=== PATIENT | male | born 1975 | race Caucasian/White ===

== ENCOUNTER 2017-02-26 11:58 | Emergency (ER) | payer MEDICAID ==
[~2017-02-26] VITALS: Ht 170.2 cm; Wt 75.0 kg
[2017-02-26 14:14] VITALS: BP 151/101
== END 2017-02-26 14:16 | disposition home or self-care (01) ==
LOC: ER 11:59
DX: S63.592A Other specified sprain of left wrist, initial encounter (principal); S60.212A Contusion of left wrist, initial encounter; S50.12XA Contusion of left forearm, initial encounter; F12.10 Cannabis abuse, uncomplicated; F17.200 Nicotine dependence, unspecified, uncomplicated; Z98.890 Other specified postprocedural states; X58.XXXA Exposure to other specified factors, initial encounter; Y93.89 Activity, other specified; Y92.098 Other place in other non-institutional residence as the place of occurrence of the external cause; Y99.9 Unspecified external cause status
CPT/HCPCS: 29125; 73080; 73110; 99284; A6449

== ENCOUNTER 2021-06-24 03:01 | Emergency (ER) | payer MEDICAID ==
[~2021-06-24] VITALS: Ht 172.7 cm; Wt 175.0 kg
[2021-06-24 03:13] VITALS: BP 135/93
--- NOTE | 2021-06-24 04:00 | NUR ---
ERP at bedside to eval pt. Pt pink, alert, no acute/resp distress. Bed in lowest position, wheels locked, rail 2/2 up, call thrasher in reach. Will continue to monitor for acute changes and needs. Will continue to monitor for acute changes and needs.
[2021-06-24] MEDS ORDERED: HYDROcodone/acetaminophen 10/325mg tab PO ONE (04:05)
[2021-06-24] MEDS ORDERED: HYDR-3965 PO (04:17)
--- NOTE | 2021-06-24 04:31 | NUR ---
Pt pink, alert, no acute/resp distress. Bed in lowest position, wheels locked, rail 2/2 up, call thrasher in reach. Will continue to monitor for acute changes and needs. Will continue to monitor for acute changes and needs.
== END 2021-06-24 04:35 ==
LOC: ER 03:01
DX: T14.90XA Injury, unspecified, initial encounter (principal); R07.81 Pleurodynia; F12.90 Cannabis use, unspecified, uncomplicated; Z98.890 Other specified postprocedural states; Z79.899 Other long term (current) drug therapy; V99.XXXA Unspecified transport accident, initial encounter; Y93.89 Activity, other specified; Y92.89 Other specified places as the place of occurrence of the external cause; Y99.8 Other external cause status
CPT/HCPCS: 71046; 99284

== ENCOUNTER 2022-01-28 02:40 | Emergency (ER) | payer MEDICAID ==
[~2022-01-28] VITALS: Ht 172.7 cm; Wt 79.5 kg
[2022-01-28] MEDS ORDERED: ibuprofen tablet 400 MG TABLET PO ONE (04:10)
[2022-01-28 05:56] VITALS: BP 132/78
== END 2022-01-28 06:00 | disposition home or self-care (01) ==
LOC: ER 02:40
DX: M25.512 Pain in left shoulder (principal); F17.200 Nicotine dependence, unspecified, uncomplicated; F12.90 Cannabis use, unspecified, uncomplicated; V29.888A Rider (driver) (passenger) of other motorcycle injured in other specified transport accidents, initial encounter; Y93.89 Activity, other specified; Y92.89 Other specified places as the place of occurrence of the external cause; Y99.8 Other external cause status
CPT/HCPCS: 73030; 73090; 99284

== ENCOUNTER 2022-01-28 18:06 | Emergency (ER) | payer MEDICAID ==
[~2022-01-28] VITALS: Ht 172.7 cm; Wt 79.0 kg
[2022-01-29] MEDS ORDERED: acetaminophen 325mg tablet PO ONE (01:25)
[2022-01-29] MEDS ORDERED: ibuprofen tablet 400 MG TABLET PO ONE (02:00)
[2022-01-29] MEDS ORDERED: HYDROcodone/acetaminophen 10/325mg tab PO ONE (02:55)
[2022-01-29 03:26] VITALS: BP 155/87
== END 2022-01-29 03:27 | disposition home or self-care (01) ==
LOC: ER 18:07
DX: S62.165A Nondisplaced fracture of pisiform, left wrist, initial encounter for closed fracture (principal); M25.532 Pain in left wrist; M25.551 Pain in right hip; F12.90 Cannabis use, unspecified, uncomplicated; Z72.89 Other problems related to lifestyle; Z98.890 Other specified postprocedural states; V89.2XXA Person injured in unspecified motor-vehicle accident, traffic, initial encounter; Y93.89 Activity, other specified; Y92.89 Other specified places as the place of occurrence of the external cause; Y99.8 Other external cause status
CPT/HCPCS: 29125; 70450; 72125; 73110; 73552; 99284; A6449

== ENCOUNTER 2022-02-02 08:56 | Emergency (ER) | payer MEDICAID ==
[~2022-02-02] VITALS: Ht 172.7 cm; Wt 79.5 kg
[2022-02-02 09:26] VITALS: BP 188/121
--- NOTE | 2022-02-02 12:09 | NUR ---
[employer].
--- NOTE | 2022-02-02 13:39 | NUR ---
JAVA PROGRAMMER ANALYST AT BEDSIDE.
== END 2022-02-02 13:59 | disposition home or self-care (01) ==
LOC: ER 08:56
DX: S60.212A Contusion of left wrist, initial encounter (principal); F12.10 Cannabis abuse, uncomplicated; Z79.899 Other long term (current) drug therapy; X58.XXXA Exposure to other specified factors, initial encounter; Y93.89 Activity, other specified; Y92.89 Other specified places as the place of occurrence of the external cause; Y99.8 Other external cause status
CPT/HCPCS: 73100; 99283; A6449

== ENCOUNTER 2022-07-03 21:08 | Emergency (ER) | payer MEDICAID, OTHER ==
[~2022-07-03] VITALS: Ht 172.7 cm; Wt 81.8 kg
[2022-07-03 22:12] LABS: MEAN CORPUSCULAR HEMOGLOBIN 31.6 PG (27.0-31.0)
[2022-07-03 22:13] LABS: BASOPHILS # (AUTO) 0.1 X10'3 (0-0.2); BASOPHILS % (AUTO) 0.7 % (0-1); EOSINOPHILS # (AUTO) 0.4 X10'3 (0-0.9); EOSINOPHILS % (AUTO) 5.3 % (0-6); HEMATOCRIT 44.2 % (42.0-52.0); HEMOGLOBIN 15.4 g/dl (14.0-17.9); LYMPHOCYTES # (AUTO) 2.3 X10'3 (1.1-4.8); LYMPHOCYTES % (AUTO) 29.1 % (21-51); MEAN CORPUSCULAR HGB CONC 34.9 g/dL (33.0-36.5); MEAN CORPUSCULAR VOLUME 90.6 FL (78-98); MEAN PLATELET VOLUME 10.3 FL (7.4-10.4); MONOCYTES # (AUTO) 0.7 X10'3 (0-0.9); MONOCYTES % (AUTO) 8.6 % (2-12); NEUTROPHILS # (AUTO) 4.5 X10'3 (1.8-7.7); NEUTROPHILS % (AUTO) 56.3 % (42-75); PLATELET COUNT 203 X10'3 (140-440); RED BLOOD COUNT 4.88 X10'6 (4.70-6.10)
[2022-07-03 22:20] LABS: ALANINE AMINOTRANSFERASE 31 U/L (12-78); ALBUMIN 4.4 G/DL (3.4-5.0); ALBUMIN/GLOBULIN RATIO 1.6 (1.1-1.5); ALKALINE PHOSPHATASE 86 IU/L (46-116); ANION GAP 5 (8-16); ASPARTATE AMINO TRANSFERASE 20 U/L (10-37); BILIRUBIN,TOTAL 0.8 MG/DL (0.1-1.0); BLOOD UREA NITROGEN 18 MG/DL (7-18); BUN/CREATININE RATIO 17.3 (10.0-20.0); CHLORIDE 102 MMOL/L (99-107); CREATININE 1.04 MG/DL (0.60-1.10); GLUCOSE 107 MG/DL (70-104); POTASSIUM 4.7 MMOL/L (3.5-5.1); SODIUM 140 MMOL/L (135-145); TOTAL CARBON DIOXIDE 33.5 MMOL/L (24-32); TOTAL PROTEIN 7.2 G/DL (6.4-8.2); eGFR 78 ML/MIN
--- NOTE | 2022-07-03 22:46 | NUR ---
pt placed in room ed12
[2022-07-03 23:45] VITALS: BP 165/96
== END 2022-07-04 00:22 ==
LOC: EEVIPCON 21:09 → ER 21:09
DX: R07.9 Chest pain, unspecified (principal); F12.10 Cannabis abuse, uncomplicated
CPT/HCPCS: 36415; 71045; 80053; 83880; 84484; 85025; 93005; 99285

== ENCOUNTER 2023-06-11 22:02 | Emergency (ER) | payer MEDICAID, OTHER ==
[~2023-06-11] VITALS: Ht 175.3 cm; Wt 67.5 kg
[2023-06-11 22:58] LABS: BASOPHILS # (AUTO) 0.1 X10'3 (0-0.2); BASOPHILS % (AUTO) 1.2 % (0-1); EOSINOPHILS # (AUTO) 0.9 X10'3 (0-0.9); EOSINOPHILS % (AUTO) 9.8 % (0-6); HEMATOCRIT 41.8 % (42.0-52.0); HEMOGLOBIN 14.5 g/dl (14.0-17.9); LYMPHOCYTES # (AUTO) 1.3 X10'3 (1.1-4.8); LYMPHOCYTES % (AUTO) 14.7 % (21-51); MEAN CORPUSCULAR HEMOGLOBIN 31.7 PG (27.0-31.0); MEAN CORPUSCULAR HGB CONC 34.6 g/dL (33.0-36.5); MEAN CORPUSCULAR VOLUME 91.4 FL (78-98); MONOCYTES # (AUTO) 0.9 X10'3 (0-0.9); MONOCYTES % (AUTO) 9.5 % (2-12); NEUTROPHILS # (AUTO) 5.8 X10'3 (1.8-7.7); NEUTROPHILS % (AUTO) 64.8 % (42-75); PLATELET COUNT 216 X10'3 (140-440); RED BLOOD COUNT 4.57 X10'6 (4.70-6.10); RED CELL DISTRIBUTION WIDTH 12.8 % (11.5-14.5)
[2023-06-11 23:10] LABS: ALBUMIN 3.5 G/DL (3.4-5.0); ANION GAP 4 (8-16); BLOOD UREA NITROGEN 22 MG/DL (7-18); BUN/CREATININE RATIO 22.4 (10.0-20.0); CALCIUM 9.2 MG/DL (8.5-10.1); CHLORIDE 106 MMOL/L (99-107); CREATININE 0.98 MG/DL (0.60-1.10); GLUCOSE 111 MG/DL (70-104); POTASSIUM 3.9 MMOL/L (3.5-5.1); SODIUM 142 MMOL/L (135-145); eCRCL 91 ML/MIN; eGFR 83 ML/MIN
[2023-06-11 23:44] LABS: ETHANOL < 10 MG/DL (<10); THYROID STIMULATING HORMONE 1.26 ulU/ml (0.34-4.50)
[2023-06-12 00:05] VITALS: TEMP 98.6
[2023-06-12 02:05] VITALS: BP 158/9; PULSE 74; RESP 15; O2SAT 96
[2023-06-12 02:28] LABS: URINE AMPHETAMINE SCREEN POSITIVE (Neg); URINE BARBITUATE SCREEN NEGATIVE (Neg); URINE BENZODIAZEPINES SCREEN NEGATIVE (Neg); URINE CANNABINOID SCREEN NEGATIVE (Neg); URINE COCAINE SCREEN NEGATIVE (Neg); URINE METHADONE SCREEN NEGATIVE (Neg); URINE OPIATE SCREEN NEGATIVE (Neg); URINE PHENCYCLIDINE SCREEN NEGATIVE (Neg)
== END 2023-06-12 03:36 | disposition home or self-care (01) ==
LOC: ER 22:02
DX: F15.10 Other stimulant abuse, uncomplicated (principal); F12.90 Cannabis use, unspecified, uncomplicated
CPT/HCPCS: 36415; 70450; 71045; 80048; 80305; 80320; 84443; 84484; 85025; 93005; 99285

== ENCOUNTER 2023-06-21 11:48 | Outpatient (CLI) | payer MEDICAID | END 2023-06-21 23:59 | disposition home or self-care (01) | LOC: RAD 11:48 | PROVIDERS: ATTEND Family Medicine | DX: S62.306A Unspecified fracture of fifth metacarpal bone, right hand, initial encounter for closed fracture (principal); S62.606A Fracture of unspecified phalanx of right little finger, initial encounter for closed fracture; M79.641 Pain in right hand; M25.531 Pain in right wrist; M79.671 Pain in right foot; X58.XXXA Exposure to other specified factors, initial encounter; Y93.89 Activity, other specified; Y92.89 Other specified places as the place of occurrence of the external cause; Y99.8 Other external cause status | CPT/HCPCS: 73110; 73130; 73630 ==